=== PATIENT | male | born 1995 | race Caucasian/White ===

== ENCOUNTER 2021-06-30 16:13 | Emergency (ER) | payer OTHER ==
[2021-06-30 17:45] LABS: HEMOGLOBIN 15.1 gm/dl (14.0-17.5); RED BLOOD COUNT 4.9 M/UL (4.20-5.50); WHITE BLOOD COUNT 5.3 K/UL (4.5-11.0)
[2021-06-30 18:24] LABS: BUN/CREATININE RATIO 14 (0-10)
== END 2021-06-30 21:26 | disposition home or self-care (01) ==
LOC: ER1 16:13
PROVIDERS: Physician Assistant
DX: R07.9 Chest pain, unspecified (principal); R55 Syncope and collapse; Z20.822 Contact with and (suspected) exposure to COVID-19
CPT/HCPCS: 70450; 71045; 80053; 82550; 82553; 84484; 85025; 93005; 99285; U0002